=== PATIENT | male | born 1975 | race Two or more races ===

== ENCOUNTER 2023-06-18 13:22 | Inpatient (IN) | payer OTHER ==
[2023-06-18 14:02] VITALS: BMI 23.8
[2023-06-18] MEDS ORDERED: BISMUTH SUBSALICYLATE 262 MG/15 ML BTL PO PRN (14:51)
[2023-06-18] MEDS ORDERED: MAG HYDROX/AL HYDROX/SIMETH 30 ML UNIT-DOSE CUP PO PRN (14:51)
[2023-06-18] MEDS ORDERED: NALOXONE HCL 0.4 MG/ML VIAL IM PRN (14:51)
[2023-06-18] MEDS ORDERED: MAGNESIUM HYDROX 2400MG/30ML ORAL SUSPENSION 30 ML CUP PO PRN (14:51)
[2023-06-18] MEDS ORDERED: DICYCLOMINE HCL 10 MG CAPSULE PO PRN (14:51)
[2023-06-18] MEDS ORDERED: POLYETHYLENE GLYCOL (HEALTHYLAX) 3350 17 GM PACKET PO PRN (14:51)
[2023-06-18] MEDS ORDERED: ACETAMINOPHEN 325 MG TABLET (FP) PO PRN (14:51)
[2023-06-18] MEDS ORDERED: NALOXONE HCL (KLOXXADO) 8 MG SPRAY NS PRN (14:51)
[2023-06-18] MEDS ORDERED: ONDANSETRON *ODT* 4 MG TABLET SL PRN (14:51)
[2023-06-18] MEDS ORDERED: BENZONATATE 200 MG CAPSULE PO PRN (14:51)
[2023-06-18] MEDS ORDERED: LOPERAMIDE HCL 2 MG CAPSULE PO PRN (14:51)
[2023-06-18] MEDS ORDERED: BENZOCAINE/MENTHOL (CHLORASEPTIC ) LOZENGE MM PRN (14:51)
[2023-06-18] MEDS ORDERED: guaiFENesin 600 MG TABLET.ER (FP) PO PRN (14:51)
[2023-06-18] MEDS ORDERED: IBUPROFEN 600 MG TABLET (FP) PO PRN (14:51)
[2023-06-18] MEDS ORDERED: IBUPROFEN 400 MG TABLET (FP) PO PRN (14:51)
[2023-06-18] MEDS: NICOTINE 14 MG/24 HOURS TOPICAL PATCH TD SCH (15:50)
[2023-06-18] MEDS: hydrOXYzine PAMOATE 25 MG CAPSULE (FP) PO PRN (22:20)
[2023-06-18] MEDS: METHOCARBAMOL 500 MG TABLET PO PRN (22:20)
[2023-06-18] MEDS: THIAMINE HCL 100 MG TABLET (FP) PO SCH (22:20)
[2023-06-18] MEDS: MELATONIN 5 MG TABLETS PO SCH (22:20)
[2023-06-19] MEDS: NICOTINE 14 MG/24 HOURS TOPICAL PATCH TD SCH (10:20)
[2023-06-19] MEDS: PRENATAL VITAMINS W/ FOLIC ACID TABLET (FP) PO SCH ×2 (10:22)
[2023-06-19] MEDS ORDERED: diazePAM 5 MG TABLET PO PRN (10:41)
[2023-06-19] MEDS ORDERED: cloNIDine HCL 0.1 MG TABLET PO PRN (10:41)
[2023-06-19] MEDS ORDERED: methaDONE HCL 10 MG TABLET (FOR DETOX USE ONLY) PO ONE (11:00)
[2023-06-19] MEDS: CITALOPRAM HYDROBROMIDE 20 MG TABLET PO SCH (11:09)
[2023-06-19] MEDS: diazePAM 5 MG TABLET PO SCH ×3 (11:09→22:50)
[2023-06-19] MEDS: THIAMINE HCL 100 MG TABLET (FP) PO SCH (22:50)
[2023-06-19] MEDS: traZODone HCL 50 MG TABLET (FP) PO SCH (22:50)
[2023-06-19] MEDS: MELATONIN 5 MG TABLETS PO SCH (23:16)
[2023-06-20] MEDS: diazePAM 5 MG TABLET PO SCH ×4 (05:53→23:45)
[2023-06-20] MEDS: CITALOPRAM HYDROBROMIDE 20 MG TABLET PO SCH (10:39)
[2023-06-20] MEDS: METHOCARBAMOL 500 MG TABLET PO PRN (10:39)
[2023-06-20] MEDS: NICOTINE 14 MG/24 HOURS TOPICAL PATCH TD SCH (10:41)
[2023-06-20] MEDS: PRENATAL VITAMINS W/ FOLIC ACID TABLET (FP) PO SCH (10:41)
[2023-06-20] MEDS: MELATONIN 5 MG TABLETS PO SCH (23:45)
[2023-06-20] MEDS: traZODone HCL 50 MG TABLET (FP) PO SCH (23:45)
[2023-06-20] MEDS: THIAMINE HCL 100 MG TABLET (FP) PO SCH (23:45)
[2023-06-21] MEDS: diazePAM 5 MG TABLET PO SCH ×3 (06:01→23:02)
[2023-06-21] MEDS ORDERED: methaDONE HCL 10 MG TABLET (FOR DETOX USE ONLY) PO ONE (10:00)
[2023-06-21] MEDS: NICOTINE 14 MG/24 HOURS TOPICAL PATCH TD SCH (10:26)
[2023-06-21] MEDS: CITALOPRAM HYDROBROMIDE 20 MG TABLET PO SCH (10:28)
[2023-06-21 10:34] LABS: BASO % 0.6 % (0-2.0); EOS % 2.3 % (0-4.5); HEMATOCRIT 47.6 % (35.4-49); LYMPH % 15.1 % (8-40); MCH 30.7 pg (25.7-33.7); MCHC 33.6 g/dl (32.0-35.9); MEAN CELL VOLUME 91.2 fl (80-96); MEAN PLT VOLUME 7.7 fl (7.5-11.1); MONO % 5.5 % (3.8-10.2); NEUT % 76.5 % (42.8-82.8); PLATELET COUNT 334 10^3/uL (134-434); RBC 5.22 M/mm3 (4.00-5.60); RDW 13.2 % (11.9-15.9); WHITE BLOOD COUNT 6.9 K/mm3 (4.0-10.0)
[2023-06-21] MEDS: PRENATAL VITAMINS W/ FOLIC ACID TABLET (FP) PO SCH (10:46)
[2023-06-21 11:25] LABS: POTASSIUM 4.5 mmol/L (3.5-5.1)
[2023-06-21 11:28] LABS: CALCIUM 9.1 mg/dL (8.5-10.1)
[2023-06-21 11:29] LABS: ALBUMIN 3.3 g/dl (3.4-5.0); BLOOD UREA NITROGEN 17.8 mg/dL (7-18)
[2023-06-21 11:32] LABS: CREATININE 0.8 mg/dL (0.55-1.3)
[2023-06-21 11:34] LABS: BILIRUBIN,TOTAL 0.8 mg/dL (0.2-1); TOT PROT 6.9 g/dl (6.4-8.2)
[2023-06-21] MEDS: traZODone HCL 50 MG TABLET (FP) PO SCH (23:01)
[2023-06-21] MEDS: hydrOXYzine PAMOATE 25 MG CAPSULE (FP) PO PRN (23:01)
[2023-06-21] MEDS: THIAMINE HCL 100 MG TABLET (FP) PO SCH (23:04)
[2023-06-21] MEDS: MELATONIN 5 MG TABLETS PO SCH (23:05)
[2023-06-22] MEDS: diazePAM 5 MG TABLET PO SCH ×2 (05:32→16:59)
[2023-06-22 09:29] VITALS: RESP 18
[2023-06-22] MEDS: CITALOPRAM HYDROBROMIDE 20 MG TABLET PO SCH (10:27)
[2023-06-22] MEDS: PRENATAL VITAMINS W/ FOLIC ACID TABLET (FP) PO SCH (10:27)
[2023-06-22] MEDS: NICOTINE 14 MG/24 HOURS TOPICAL PATCH TD SCH (10:29)
[2023-06-22 17:41] VITALS: BP 133/81; PULSE 113; TEMP 97.8
[2023-06-23] MEDS ORDERED: diazePAM 5 MG TABLET PO ONE (06:00)
[2023-06-23] MEDS ORDERED: methaDONE HCL 10 MG TABLET (FOR DETOX USE ONLY) PO ONE (10:00)
== END 2023-06-22 16:59 | disposition left against medical advice (07) | DRG 770 ==
LOC: YASAS 13:22 → Y6N 15:19
PROVIDERS: ADMIT Allergy & Immunology; ATTEND Surgery
PROC: HZ2ZZZZ Detoxification Services for Substance Abuse Treatment (ICD-10-PCS; principal; 2023-06-18)
DX: F11.23 Opioid dependence with withdrawal (principal); F10.230 Alcohol dependence with withdrawal, uncomplicated; F14.20 Cocaine dependence, uncomplicated; F17.210 Nicotine dependence, cigarettes, uncomplicated; F19.282 Other psychoactive substance dependence with psychoactive substance-induced sleep disorder; F19.24 Other psychoactive substance dependence with psychoactive substance-induced mood disorder; F32.A Depression, unspecified; R63.4 Abnormal weight loss; Z68.23 Body mass index [BMI] 23.0-23.9, adult; Z28.310 Unvaccinated for COVID-19; Z28.9 Immunization not carried out for unspecified reason
CPT/HCPCS: 36415; 80053; 85025; 86780; 87635; 87811